=== PATIENT | female | born 1995 | race Caucasian/White ===

== ENCOUNTER 2019-11-06 04:21 | Inpatient (IN) | payer BC, MEDICAID ==
[~2019-11-06] VITALS: Ht 154.9 cm; Wt 72.7 kg
[2019-11-06] VITALS (40 sets, daily range): BP systolic 98–160; BP diastolic 52–87
--- NOTE | 2019-11-06 07:00 | NUR ---
AISLINN REZA admitted to room 3316-1, with an admitting diagnosis of induction of labor, on 11/06/19 from home, ambulated to OB floor accompanied by s/o .AISLINN REZA introduced to surroundings, call light, bed controls, phone, TV, temperature control, lights, meal times, smoking policy, visitor policy, side rail policy, bathrooms and showers. Patient Rights given to patient in the handbook. AISLINN REZA verbalizes understanding that [facility] is not responsible for the loss or damage to any personal effects or valuables that are kept in the patients posession during their hospitalization. The following Patient Care Plans were discussed with the patient: Discharge Planning, labor plan of care, pain management, and care. AISLINN REZA verbalizes understanding of Interdisciplinary Patient Education. Patient and/or family were informed about the Rapid Response Team and its purpose.
[2019-11-06] MEDS ORDERED: OXYTOCIN PRE-MIX DRIP 500 ML IV SCH ×3 (07:22→17:33)
[2019-11-06] MEDS ORDERED: D5 LR IV SOLUTION 1,000 ML IV SCH ×3 (07:22→17:45)
[2019-11-06] MEDS ORDERED: MINERAL OIL CONCENTRATE 99.9% 15 ML UDC TOP PRN (07:30)
--- NOTE | 2019-11-06 07:48 | History & Physical ---
History and Physical Date Seen by Provider: Nov 06, 2019 Time Seen by Provider: 07:46 This patient is a 23-year-old 1 white female at [address] [place] [address]. She presents with plans for induction of labor due to gestational diabetes. has been uncomplicated to date except for gestational diabetes that has been well controlled with diet. Her GBS culture at 35 weeks gestation positive. Patient denies rupture membranes or bleeding. Allergies are none Medications are vitamin medical social and surgical histories are per the antepartum record HEENT exam is normal Neck is supple no lymphadenopathy no thyromegaly Abdomen gravid soft nontender nondistended Extremities show no clubbing cyanosis. There is no Homans sign. Pelvic exam is pending Assessment and plan 38 week gestation with a patient with gestational diabetes and a GBS positive culture. Plan is for induction of labor under the cover of ampicillin for GBS prophylaxis. Anticipate vaginal delivery. 38 weeks with gestational diabetes admitted for induction of labor Allergies and Home Medications Allergies Coded Allergies: No Known Drug Allergies (Unverified , 11/06/19) Patient Home Medication List Home Medication List Reviewed: Yes KEN GARCIA MD Nov 06, 2019 07:47
[2019-11-06] MEDS ORDERED: AMPICILLIN FOR IV USE 2,000 MG in WATER (STERILE) FOR INJECTION 14.8 ML IV NR (08:00)
[2019-11-06] MEDS ORDERED: WATER (STERILE) FOR INJECTION 20 ML ONE (08:14)
[2019-11-06] MEDS ORDERED: AMPICILLIN FOR IV USE 2,000 MG VIAL ONE (08:14)
[2019-11-06 08:27] LABS: BASOPHILS % (AUTO) 1 % (0-10); EOSINOPHILS # (AUTO) 0.2 10^3/uL (0.0-0.3); EOSINOPHILS % (AUTO) 2 % (0-10); HEMATOCRIT 37 % (35-52); HEMOGLOBIN 12.3 G/DL (11.5-16.0); LYMPHOCYTES # (AUTO) 2.3 X 10^3 (1.0-4.0); LYMPHOCYTES % (AUTO) 28 % (12-44); MEAN CORPUSCULAR HEMOGLOBIN 28 PG (25-34); MEAN CORPUSCULAR HGB CONC 33 G/DL (32-36); MEAN CORPUSCULAR VOLUME 83 FL (80-99); MONOCYTES # (AUTO) 0.6 X 10^3 (0.0-1.0); MONOCYTES % (AUTO) 8 % (0-12); NEUTROPHILS # (AUTO) 5.1 X 10^3 (1.8-7.8); NEUTROPHILS % (AUTO) 62 % (42-75); PLATELET COUNT 119 10^3/uL (130-400); RED CELL DISTRIBUTION WIDTH 14.8 % (10.0-14.5); WHITE BLOOD COUNT 8.2 10^3/uL (4.3-11.0)
--- OUTSIDE RECORDS SUMMARY | 2019-11-06 08:34 | XMS REPORT | Continuity of Care Document ---
Author Organization Unknown Address Unknown Phone Unavailable Allergies There is no data. Medications There is no data. Problems There is no data. Procedures There is no data. Results There is no data. Encounters ACCT No. Visit Date/Time Discharge Status Pt. Type Provider Facility Loc./Unit Complaint [id number] 03/26/2019 14:20:00 03/26/2019 23:59:5 9 CLS Outpatient [facility]
--- OUTSIDE RECORDS SUMMARY | 2019-11-06 08:34 | XMS REPORT ---
Author Author Rozina Rothman Organization [facility] Address [address] [place] [address] Care Team Providers Care Residential Property Tax Appraiser Name Role Phone SUSY Rothman Unavailable PROBLEMS Type Condition ICD9-CM Code VSV26-[place] Code Onset Dates Condition S tatus SNOMED Code Problem Constipation, unspecified constipation type K59.00 Active 95061405 Problem Amenorrhea N91.2 Active [id number] ALLERGIES No Information ENCOUNTERS Encounter Location Date Diagnosis [facility] [address] [id number] [address] [place] [id number] Mar, Amenorrhea N91.2 [facility] [address] [id number] [address] [place] [id number] Oct, Flank pain R10.9 ; Acute cys titis with hematuria N30.01 and Constipation, unspecified constipation type K59.00 [facility] [address] [id number] [address] [place] [id number] Oct, Left flank pain R10.9 and Ga stroenteritis K52.9 [facility] [address] [id number] [address] [place] [id number] Oct, IMMUNIZATIONS No Known Immunizations SOCIAL HISTORY Never Assessed REASON FOR VISIT PLAN OF CARE VITAL SIGNS MEDICATIONS No Known Medications RESULTS No Results PROCEDURES No Known procedures INSTRUCTIONS MEDICATIONS ADMINISTERED No Known Medications MEDICAL (GENERAL) HISTORY Type Description Date Surgical History No know Surgical history
[2019-11-06] MEDS ORDERED: fentaNYL 2 mcg/ml BUPIVA 0.125 100 ML ONE (10:08)
[2019-11-06] MEDS ORDERED: fentaNYL INJECTION 100 MCG/2 ML AMP ONE (10:20)
[2019-11-06] MEDS ORDERED: BUPIVACAINE 0.25% 30 ML (SENSORCAINE) VIAL ONE (10:20)
[2019-11-06] MEDS ORDERED: LIDOCAINE PF 2% 5 ML (XYLOCAINE) VIAL ONE (10:20)
[2019-11-06] MEDS ORDERED: LACTATED RINGERS 1,000 ML IV SCH (10:57)
[2019-11-06] MEDS ORDERED: NALOXONE 0.4 MG/ML 1 ML (NARCAN) VIAL IV PRN (11:00)
[2019-11-06] MEDS ORDERED: EPIDURAL (fentaNYL 2 MCG/ML BUPIVA 0.125%)100 ML BAG EPI PRN (11:00)
[2019-11-06] MEDS ORDERED: diphenhydrAMINE 50 MG/ML INJ (BENADRYL) IV PRN (11:00)
[2019-11-06] MEDS ORDERED: ONDANSETRON 4 MG/2 ML (SDV) Z0FRAN IV PRN (11:00)
[2019-11-06] MEDS ORDERED: AMPICILLIN FOR IV USE 1,000 MG in WATER (STERILE) FOR INJECTION 7.4 ML IV SCH (12:00)
[2019-11-06] MEDS ORDERED: LIDOCAINE/EPI 2% 1:200,00 (XYLOCAINE) 10 ML VIAL ONE ×2 (12:43→14:34)
--- NOTE | 2019-11-06 15:08 | NUR ---
lidocaine administered to perineum. episotomy performed by dr swenson per patient verbal request.
--- NOTE | 2019-11-06 15:15 | NUR ---
spontaneous vaginal delivery of intact placenta by dr swenson sent to lab.
--- NOTE | 2019-11-06 15:16 | NUR ---
dr assessing perineum for further tears/lacerations, lidocaine administered to perineum by dr swenson .
--- NOTE | 2019-11-06 15:17 | NUR ---
repair began by dr swenson using 3.0 rapide. 1528 repair completed.
[2019-11-06] MEDS ORDERED: KETOROLAC 30 MG/ML VIAL ONE (15:33)
--- NOTE | 2019-11-06 17:05 | NUR ---
fundal massage U/1. several clots expressed with massage. moderate to heavy flow. assisted into w/c, transferred to pp room 312 via w/c with s/o and baby. a/o x3 talking with staff and s/o. denies pain. assisted into bathroom with standby assistance. gait slow but steady.
--- NOTE | 2019-11-06 17:30 | NUR ---
dr swenson notified of events while patient up to bathroom. vitals reviewed, neurological status reviewed. new orders received. will continue to monitor.
[2019-11-06] MEDS ORDERED: TETANUS,DIPTH,PERTUSS P/F (BOOSTRIX) 0.5 ML VIAL IM ONE (17:45)
[2019-11-06] MEDS ORDERED: ONDANSETRON 4 MG/2 ML (SDV) Z0FRAN IVP PRN (17:45)
[2019-11-06] MEDS ORDERED: BENZOCAINE/MENTHOL (DERMOPLAST) 60 ML CAN TP PRN (17:45)
[2019-11-06] MEDS ORDERED: MEASLES,MUMPS,RUBELLA 1 EA INJ SC ONE (17:45)
[2019-11-06] MEDS ORDERED: oxyCODONE/APAP 5/325MG (PERCOCET 5) TABLET PO PRN (17:45)
[2019-11-06] MEDS: DOCUSATE SODIUM 100 MG (COLACE) CAP PO SCH (20:33)
[2019-11-06] MEDS: CATHETER FLUSH 10 ML SYR IV SCH (21:02)
[2019-11-06] MEDS: KETOROLAC 30 MG/ML VIAL IVP SCH (23:13)
[2019-11-07 04:20] VITALS: BP 96/57
[2019-11-07] MEDS: KETOROLAC 30 MG/ML VIAL IVP SCH ×2 (06:04→20:01)
[2019-11-07] MEDS: CATHETER FLUSH 10 ML SYR IV SCH (06:07)
--- NOTE | 2019-11-07 07:49 | Progress Note ---
Standard Progress Note Progress Notes/Assess & Plan Date Seen by a Provider: Nov 07, 2019 Time Seen by a Provider: 07:48 Progress/Assessment & Plan This patient is without complaint. She is ambulating, voiding, tolerating oral intake well has good pain control. Vital Signs 11/06/19 11/07/19 23:13 04:20 Temp 35.9 Pulse 74 Resp 18 B/P (MAP) 96/57 (70) Pulse Ox 97 O2 Delivery Room Air Vital signs are stable. Patient is afebrile. Fundus is firm below the umbilicus and nontender. Extremities show no clubbing cyanosis. There is no Homans sign. Assessment and plan was day 1 status post term spontaneous vaginal delivery at 38 weeks gestation. Patient doing well will have routine convalescence care Final Diagnosis 38 week spontaneous vaginal delivery KEN GARCIA MD Nov 07, 2019 07:48
--- NOTE | 2019-11-07 07:49 | Anesthesia-Regional Post-Op ---
Regional Patient Condition Mental Status: Alert, Oriented x3 Circulation: Same as Pre-Op Headache: Absent Sensation: Full Recovery Motor Block: Absent Post Op Complications Complications None Follow Up Care/Instructions Patient Instructions None needed. Anesthesia/Patient Condition Patient is doing well, no complaints, stable vital signs, no apparent adverse anesthesia problems. No complications reported per nursing. GIO MAC CRNA Nov 07, 2019 07:49
[2019-11-07] MEDS ORDERED: DCS100C PO (07:50)
[2019-11-07] MEDS ORDERED: IBUP-1780 PO (07:50)
[2019-11-07] MEDS ORDERED: OXYC1TAB87 PO (07:50)
--- NOTE | 2019-11-07 07:51 | Discharge Inst-Surgical ---
Discharge Inst-Surgical Depart Medication/Instructions New, Converted or Re-Newed RX: RX on Chart Consults/Follow Up Patient Instructions: As directed Orders & Referrals Follow Up Appt: Call to make follow up appt. for patient in 4 weeks. Activity Per routine post vaginal delivery instructions. Please call in RX to patient pharmacy. Diet as tolerated Patient may shower or tub bathe as desired. Activity Activity as Tolerated: No Diet Discharge Diet: No Restrictions KEN GARCIA MD Nov 07, 2019 07:51
[2019-11-07] MEDS: DOCUSATE SODIUM 100 MG (COLACE) CAP PO SCH ×2 (08:44→21:20)
[2019-11-07 08:45] VITALS: BP 84/47
[2019-11-07] MEDS ORDERED: IBUPROFEN 800 MG (MOTRIN) TAB PO ONE ×2 (12:16→18:24)
[2019-11-07 12:20] VITALS: BP 104/62
--- NOTE | 2019-11-07 12:21 | OPERATIVE REPORT ---
DATE OF SERVICE: 11/06/2019 DELIVERY NOTE The patient delivered by term spontaneous vaginal delivery, a viable female infant with Apgars of 8 and 9 at 1 and 5 minutes respectively, weight 7 pounds 15 ounces. Cord blood pH that is pending and a time of 1510. The infant was delivered over an episiotomy that was performed at the patient's request. The patient has specifically requested episiotomy when she could feel her bottom tearing as the was trying to deliver over the perineum. Episiotomy was then performed at her request and the delivery completed without further inherent trauma. The was bulb suctioned on delivery of the head and again on completion of delivery. Umbilical cord was doubly clamped, father cut the cord, the baby was passed to mom's abdomen. Cord bloods were obtained. The placenta delivered spontaneously Cole. It was normal with a 3-vessel cord. The cervix, rectum, vagina and perineum were examined and found intact, except for the episiotomy and several superficial lacerations involving the hymenal ring and the posterior vaginal wall. The episiotomy was repaired in the usual manner with a single suture of 3-0 Vicryl Rapide. The lacerations were repaired concurrent with that repair as well. There were several small superficial abrasions periurethrally located as well. These were hemostatic and did not require repair. Sponge and needle counts were correct on completion of delivery and the repair. Estimated blood loss was around 350 mL. The patient tolerated the delivery well and was recovered in the LDR. The baby remained with the mom. Job ID: [id number] DocumentID: [id number] Dictated Date: 11/07/2019 07:55:42 Baling Machine Tender Date: 11/07/2019 12:21:06 Dictated By: KEN GARCIA MD
[2019-11-07 18:30] VITALS: BP 104/56
[2019-11-08] MEDS ORDERED: FERROUS SULF 325 MG (IRON) TAB PO ONE (00:49)
[2019-11-08 00:53] VITALS: BP 96/55
[2019-11-08] MEDS: IBUPROFEN 800 MG (MOTRIN) TAB PO SCH ×4 (00:53→17:55)
[2019-11-08] MEDS: FERROUS SULF 325 MG (IRON) TAB PO SCH ×3 (00:53→17:55)
[2019-11-08 06:20] VITALS: BP 87/48
--- NOTE | 2019-11-08 07:45 | NUR ---
DR. GARCIA HERE TO SEE PT.
--- NOTE | 2019-11-08 07:58 | Progress Note ---
Standard Progress Note Progress Notes/Assess & Plan Date Seen by a Provider: Nov 08, 2019 Time Seen by a Provider: 07:57 Progress/Assessment & Plan This patient is without complaint. She is ambulating, voiding, tolerating oral intake well has good pain control. Vital Signs 11/06/19 11/07/19 23:13 04:20 Temp 35.9 Pulse 74 Resp 18 B/P (MAP) 96/57 (70) Pulse Ox 97 O2 Delivery Room Air Vital signs are stable. Patient is afebrile. Fundus is firm below the umbilicus and nontender. Extremities show no clubbing cyanosis. There is no Homans sign. Assessment and plan was day 1 status post term spontaneous vaginal delivery at 38 weeks gestation. Patient doing well will have routine convalescence care November 08, 2019 Patient is without complaint. She is ambulating, voiding, tolerating oral intake well and requesting discharge home. Vital Signs Date Time Temp Pulse Resp B/P (MAP) Pulse Ox O2 Delivery O2 Flow Rate FiO2 11/08/19 06:20 36.4 75 18 87/48 (61) 99 Room Air 11/08/19 00:53 37.0 71 18 96/55 (69) 98 Room Air 11/07/19 18:30 37.1 78 18 104/56 (72) Room Air 11/07/19 12:20 37.2 68 18 104/62 (76) 98 Room Air 11/07/19 08:45 37.0 66 18 84/47 (59) 98 Room Air Vital signs are stable. Patient is afebrile. The abdomen is benign. Fundus firm below the umbilicus is nontender. Extremities show no clubbing or cyanosis. There is no Homans sign. Assessment and plan day number 2 status post term spontaneous vaginal delivery at 38 weeks gestation. Patient is doing well and will be discharged home with follow-up in clinic Final Diagnosis 38 week spontaneous vaginal delivery KEN GARCIA MD Nov 08, 2019 07:58
--- NOTE | 2019-11-08 09:00 | NUR ---
Rick MONTOYA. VSS. CARING FOR INFANT IN ROOM.
[2019-11-08 09:15] VITALS: BP 99/52
[2019-11-08] MEDS: DOCUSATE SODIUM 100 MG (COLACE) CAP PO SCH (09:56)
[2019-11-08] MEDS ORDERED: WITCH HAZEL(TUCKS) 40 EA JAR TOP PRN (10:00)
--- NOTE | 2019-11-08 12:00 | NUR ---
VSS. CONTINUES TO DO WELL. STATES GOING WELL. SPOUSE AT BEDSIDE.
[2019-11-08 12:05] VITALS: BP 101/53
--- NOTE | 2019-11-08 13:15 | NUR ---
EATING STORK MEAL.
--- NOTE | 2019-11-08 14:00 | NUR ---
MOVES WELL. OFFERS NO COMPLAINT.
--- NOTE | 2019-11-08 14:40 | NUR ---
PRESCRIPTIONS CALLED TO [facility] PER PT REQUEST.
--- NOTE | 2019-11-08 15:00 | NUR ---
INFANT TO HAVE REPEAT BILIRUBIN. HOPING TO GO HOME WITH INFANT THIS EVENING.
--- NOTE | 2019-11-08 15:33 | NUR ---
TDAP GIVEN IM IN LEFT DELTOID. SITE CLEAR.
[2019-11-08 17:00] VITALS: BP 112/73
--- NOTE | 2019-11-08 17:00 | NUR ---
VSS. DENIES ANY PAIN. CARING FOR INFANT IN ROOM.
--- NOTE | 2019-11-08 17:45 | NUR ---
DISCHARGE INSTRUCTIONS REVIEWED WITH COPY TO PT. STATES UNDERSTANDING OF ALL INSTRUCTIONS AND NEED TO F/U SCHEDULED AND NEEDED.
[2019-11-08 18:00] VITALS: BP 112/73
--- NOTE | 2019-11-08 18:00 | NUR ---
PT DISMISSED FROM WS IN STABLE CONDITION. PT WILL REMAIN IN PT ROOM R/T INFANT HAVING TO STAY IN HOSPITAL.
[2019-11-11] MEDS ORDERED: IBUPROFEN 800 MG (MOTRIN) TAB PO SCH (18:00)
== END 2019-11-08 18:00 | disposition home or self-care (01) | DRG 807 ==
LOC: LDRP 07:00
PROVIDERS: ADMIT Obstetrics & Gynecology; ATTEND Obstetrics & Gynecology
PROC: 10E0XZZ Delivery of Products of Conception, External Approach (ICD-10-PCS; principal; 2019-11-06)
PROC: 0W8NXZZ Division of Female Perineum, External Approach (ICD-10-PCS; 2019-11-06)
PROC: 0HQ9XZZ Repair Perineum Skin, External Approach (ICD-10-PCS; 2019-11-06)
PROC: 0UQGXZZ Repair Vagina, External Approach (ICD-10-PCS; 2019-11-06)
PROC: 3E033VJ Introduction of Other Hormone into Peripheral Vein, Percutaneous Approach (ICD-10-PCS; 2019-11-06)
DX: O24.420 Gestational diabetes mellitus in childbirth, diet controlled (principal); Z37.0 Single live birth; O99.824 Streptococcus B carrier state complicating childbirth; O70.0 First degree perineal laceration during delivery; Z3A.38 38 weeks gestation of pregnancy
CPT/HCPCS: 36415; 82947; 82962; 85025; 86850; 86900; 86901; 90715

== ENCOUNTER → 2021-04-29 | Outpatient (CLI) | payer BC, MEDICAID ==
[~2021-04-29] MED LIST: DOCU-239 PO; IBUP-1780 PO; OXYC1TAB87 PO
--- NOTE | 2021-04-29 13:57 | Diagnostic Imaging Report ---
INDICATION: survey. TECHNIQUE: Multiple real-time grayscale images were obtained over the gravid uterus. COMPARISON: None FINDINGS: There is a single live fetus in a cephalic presentation. heart rate was recorded at 146 bpm. Placenta is posterior. Amniotic fluid volume appears normal. Cervical length is 4.5 cm. kidneys, bladder and stomach are unremarkable. brain is unremarkable. There is a four-chamber heart. There is three-vessel cord with normal insertion. spine is unremarkable. Biometrical measurements are as follows: Biparietal 7.56 cm, age 30 weeks 3 days. Head circumference 28.16 cm, age 31 weeks 0 days. Abdominal circumference 26.83 cm, age 31 weeks 0 days. Femur length 5.86 cm, age 30 weeks 5 days. Sonographic estimate age: 30 weeks 6 days. Sonographic estimated date of delivery: 07/02/2021. Estimated Weight: 1636 gm (+/- 239 gm). LMP percentile: 70%. heart rate: 146 beats per minute. number: 1 of 1. IMPRESSION: Single live IUP 30 weeks 6 days gestational age. Estimated of confinement sonographic is 07/02/2021. Dictated by: Dictated on workstation # [id number]
== END ==
LOC: RAD 12:45
PROVIDERS: ATTEND Nurse Practitioner Women's Health
DX: Z34.82 Encounter for supervision of other normal pregnancy, second trimester (principal); Z3A.30 30 weeks gestation of pregnancy
CPT/HCPCS: 76805

== ENCOUNTER 2021-06-25 07:00 | Inpatient (IN) | payer BC, MEDICAID ==
[2021-06-25] VITALS (55 sets, daily range): BP systolic 103–137; BP diastolic 55–98
[~2021-06-25] VITALS: Ht 154.9 cm; Wt 69.9 kg
[2021-06-25] MEDS ORDERED: D5 LR IV SOLUTION 1,000 ML IV ONE (07:31)
[2021-06-25] MEDS ORDERED: AMPICILLIN 2,000 MG/14.8 ML (IV USE) ONE (07:31)
[2021-06-25] MEDS ORDERED: NS (IVPB) 50 ML ONE (07:31)
[2021-06-25] MEDS ORDERED: AMPICILLIN FOR IV USE 2,000 MG in NS (IVPB) 50 ML IV SCH (08:06)
[2021-06-25 08:14] LABS: BASOPHILS % (AUTO) 1 % (0-10); EOSINOPHILS # (AUTO) 0.1 10^3/uL (0.0-0.3); EOSINOPHILS % (AUTO) 2 % (0-10); HEMATOCRIT 49 % (35-52); HEMOGLOBIN 15.6 g/dL (11.5-16.0); LYMPHOCYTES % (AUTO) 32 % (12-44); MEAN CORPUSCULAR HEMOGLOBIN 26 pg (25-34); MEAN CORPUSCULAR HGB CONC 32 g/dL (32-36); MEAN CORPUSCULAR VOLUME 82 fL (80-99); MONOCYTES # (AUTO) 0.4 10^3/uL (0.0-1.0); MONOCYTES % (AUTO) 7 % (0-12); NEUTROPHILS # (AUTO) 3.5 10^3/uL (1.8-7.8); NEUTROPHILS % (AUTO) 58 % (42-75); PLATELET COUNT 82 10^3/uL (130-400); WHITE BLOOD COUNT 6.1 10^3/uL (4.3-11.0)
[2021-06-25] MEDS ORDERED: OXYTOCIN PRE-MIX DRIP 500 ML IV SCH ×3 (08:15→16:30)
[2021-06-25] MEDS ORDERED: D5 LR IV SOLUTION 1,000 ML IV SCH ×2 (08:15→08:45)
[2021-06-25 08:17] LABS: SMEAR SCAN COMMENT YES
[2021-06-25 08:38] LABS: EOSINOPHILS % (MANUAL) 1 %; LYMPHOCYTES % (MANUAL) 37 %; MONOCYTES % (MANUAL) 5 %; NEUTROPHILS % (MANUAL) 55 %
[2021-06-25 08:39] LABS: ATYPICAL LYMPHOCYTES 2 %; PLATELET CLUMPS NONE SEEN; POLYCHROMASIA MODERATE
[2021-06-25] MEDS ORDERED: AMPICILLIN FOR IV USE 2,000 MG in WATER (STERILE) FOR INJECTION 14.8 ML IV ONE (08:45)
[2021-06-25] MEDS ORDERED: AMPICILLIN FOR IV USE 1,000 MG in WATER (STERILE) FOR INJECTION 7.4 ML IV SCH (08:45)
[2021-06-25] MEDS ORDERED: NS IV 1000 ML 0 ML ONE (09:27)
--- NOTE | 2021-06-25 09:30 | History & Physical ---
History and Physical Date Seen by Provider: Jun 25, 2021 Time Seen by Provider: 12:00 This patient is a 25-year-old 2 para 1 female currently at 38 weeks gestation. Her is complicated by gestational diabetes and is noted on admission labs today that she has thrombocytopenia as well. Her further is complicated by mild polyhydramnios. Patient was admitted on this date for induction of labor. Her GBS culture was positive and she will be induced under the cover of ampicillin for GBS prophylaxis Allergies are none Medications are vitamins Medical social and surgical history is are per the antepartum record HEENT exam is normal Neck is supple no lymphadenopathy no thyromegaly Abdomen is gravid soft nontender nondistended Extremities show no clubbing cyanosis. There is no Homans' sign. Pelvic exam is pending Lab work is as follows Laboratory Tests Test 06/25/21 07:30 Range/Units White Blood Count 6.1 4.3-11.0 10^3/uL Red Blood Count 5.96 H 3.80-5.11 10^6/uL Hemoglobin 15.6 11.5-16.0 g/dL Hematocrit 49 35-52 % Mean Corpuscular Volume 82 80-99 fL Mean Corpuscular Hemoglobin 26 25-34 pg Mean Corpuscular Hemoglobin Concent 32 32-36 g/dL Red Cell Distribution Width 14.6 H 10.0-14.5 % Platelet Count 82 L 130-400 10^3/uL Mean Platelet Volume 9.0-12.2 fL Immature Granulocyte % (Auto) 1 % Neutrophils (%) (Auto) 58 42-75 % Lymphocytes (%) (Auto) 32 12-44 % Monocytes (%) (Auto) 7 0-12 % Eosinophils (%) (Auto) 2 0-10 % Basophils (%) (Auto) 1 0-10 % Neutrophils # (Auto) 3.5 1.8-7.8 10^3/uL Lymphocytes # (Auto) 2.0 1.0-4.0 10^3/uL Monocytes # (Auto) 0.4 0.0-1.0 10^3/uL Eosinophils # (Auto) 0.1 0.0-0.3 10^3/uL Basophils # (Auto) 0.0 0.0-0.1 10^3/uL Immature Granulocyte # (Auto) 0.0 0.0-0.1 10^3/uL Neutrophils % (Manual) 55 % Lymphocytes % (Manual) 37 % Monocytes % (Manual) 5 % Eosinophils % (Manual) 1 % Atypical Lymphocytes 2 % Platelet Estimate SEE COMMENT Clumped Platelets NONE SEEN Polychromasia MODERATE Glucose Level 80 70-105 MG/DL Smear Scan YES Note is made of platelet count of 82,000 Assessment and plan Term at 38 weeks gestation with mild polyhydramnios and with gestational diabetes and now noted with thrombocytopenia. Patient has a GBS positive culture and will be given ampicillin throughout her labor. She is considering platelet transfusion to increase her platelets to an acceptable level for epidural which she desires. We do anticipate a vaginal delivery 38 weeks with gestational diabetes and polyhydramnios Allergies and Home Medications Allergies Coded Allergies: No Known Drug Allergies (Unverified , 11/06/19) Patient Home Medication List Home Medication List Reviewed: Yes Docusate Sodium (Dok) 100 Mg Capsule, 100 MG PO BID Prescribed by: KEN AZEVEDO on 11/07/19 0750 Ibuprofen (Ibuprofen) 800 Mg Tablet, 800 MG PO Q6HR Prescribed by: KEN AZEVEDO on 11/07/19 0750 Oxycodone HCl/Acetaminophen (Percocet 5-325 mg Tablet) 1 Each Tablet, 1 TAB PO Q4H PRN for PAIN-MODERATE (5-7) Prescribed by: KEN AZEVEDO on 11/07/19 0750 KEN GARCIA MD Jun 25, 2021 09:30
[2021-06-25] MEDS ORDERED: NS IV 500 ML 500 ML ONE (09:42)
[2021-06-25] MEDS ORDERED: AMPICILLIN FOR IV USE 1,000 MG in NS (IVPB) 50 ML IV SCH (12:15)
[2021-06-25] MEDS ORDERED: fentaNYL 2 mcg/ml BUPIVA 0.125 100 ML ONE (13:58)
[2021-06-25] MEDS ORDERED: LACTATED RINGERS 1,000 ML IV ONE (14:00)
[2021-06-25] MEDS ORDERED: diphenhydrAMINE 50 MG/ML INJ (BENADRYL) IV PRN (14:00)
[2021-06-25] MEDS ORDERED: NALOXONE 0.4 MG/ML 1 ML (NARCAN) VIAL IV PRN (14:00)
[2021-06-25] MEDS ORDERED: ONDANSETRON 4 MG/2 ML (SDV) Z0FRAN IV PRN (14:00)
[2021-06-25] MEDS ORDERED: CATHETER FLUSH 10 ML SYR IV PRN (14:00)
[2021-06-25] MEDS ORDERED: fentaNYL 2 mcg/ml BUPIVA 0.125 100 ML IV SCH (14:00)
[2021-06-25] MEDS ORDERED: fentaNYL INJ 100 MCG/2 ML AMP ONE (14:07)
[2021-06-25] MEDS ORDERED: BUPIVACAINE 0.25% 10 ML (SENSORCAINE) VIAL ONE (14:08)
[2021-06-25] MEDS ORDERED: LIDOCAINE/EPI 2% 1:200,00 (XYLOCAINE) 10 ML VIAL ONE (15:25)
[2021-06-25] MEDS ORDERED: BENZOCAINE/MENTHOL (DERMOPLAST) 56 ML CAN TP ONE (16:24)
[2021-06-25] MEDS ORDERED: TETANUS,DIPTH,PERTUSS P/F (BOOSTRIX) 0.5 ML VIAL IM ONE (16:30)
[2021-06-25] MEDS ORDERED: BENZOCAINE/MENTHOL (DERMOPLAST) 56 ML CAN TP PRN ×2 (16:30→16:45)
[2021-06-25] MEDS ORDERED: oxyCODONE/APAP 5/325MG (PERCOCET 5) TABLET PO PRN (16:30)
[2021-06-25] MEDS: KETOROLAC 30 MG/ML VIAL IVP SCH (17:11)
[2021-06-25] MEDS: CATHETER FLUSH 10 ML SYR IV SCH (19:49)
[2021-06-25] MEDS: DOCUSATE SODIUM 100 MG (COLACE) CAP PO SCH (20:31)
[2021-06-26] MEDS ORDERED: IBUPROFEN 800 MG (MOTRIN) TAB PO ONE ×2 (00:27→12:13)
[2021-06-26 00:32] VITALS: BP 105/67
[2021-06-26] MEDS: KETOROLAC 30 MG/ML VIAL IVP SCH (00:32)
[2021-06-26] MEDS: CATHETER FLUSH 10 ML SYR IV SCH (00:35)
[2021-06-26 04:00] VITALS: BP 99/59
[2021-06-26] MEDS: IBUPROFEN 800 MG (MOTRIN) TAB PO SCH ×3 (06:35→18:14)
[2021-06-26 10:11] VITALS: BP 101/67
[2021-06-26] MEDS: DOCUSATE SODIUM 100 MG (COLACE) CAP PO SCH ×2 (10:11→21:00)
--- NOTE | 2021-06-26 10:59 | Anesthesia-Regional Post-Op ---
Regional Patient Condition Mental Status: Alert, Oriented x3 Circulation: Same as Pre-Op Headache: Absent Sensation: Full Recovery Motor Block: Absent Post Op Complications Complications None Follow Up Care/Instructions Patient Instructions None needed. Anesthesia/Patient Condition Patient is doing well, no complaints, stable vital signs, no apparent adverse anesthesia problems. JOHNNIE MONTIEL DO Jun 26, 2021 10:59
--- NOTE | 2021-06-26 12:24 | Progress Note ---
Standard Progress Note Progress Notes/Assess & Plan Date Seen by a Provider: Jun 26, 2021 Time Seen by a Provider: 12:22 Progress/Assessment & Plan This patient is without complaint. She is ambulating, voiding, tolerating oral intake well and has good pain control. VS - Last 72 Hours, by Label 06/25/21 06/25/21 06/25/21 06/25/21 07:24 07:48 09:49 09:54 Temp 36.2 36.2 36.8 37.3 Pulse 85 85 78 85 Resp 18 18 18 18 B/P (MAP) 107/76 (86) 103/59 105/60 Pulse Ox 98 98 97 97 O2 Delivery Room Air Room Air Room Air Room Air 06/25/21 06/25/21 06/25/21 06/25/21 10:04 10:22 10:26 10:42 Temp 37.2 37.1 37.0 Pulse 71 79 73 76 Resp 18 18 18 18 B/P (MAP) 110/65 103/65 107/68 111/69 (83) Pulse Ox 97 98 97 O2 Delivery Room Air Room Air Room Air Room Air 06/25/21 06/25/21 06/25/21 06/25/21 10:58 11:12 11:28 11:42 Pulse 76 74 75 75 Resp 18 18 18 18 B/P (MAP) 107/63 (78) 103/60 (74) 105/64 (78) 115/66 (82) O2 Delivery Room Air Room Air Room Air Room Air 06/25/21 06/25/21 06/25/21 06/25/21 11:58 12:12 12:28 12:42 Temp 36.6 Pulse 70 76 72 66 Resp 18 18 18 18 B/P (MAP) 106/60 (75) 106/62 (77) 105/64 (78) 110/63 (79) O2 Delivery Room Air Room Air Room Air Room Air 06/25/21 06/25/21 06/25/21 06/25/21 12:58 13:12 13:27 13:43 Temp 36.7 Pulse 78 65 65 66 Resp 18 18 18 18 B/P (MAP) 115/55 (75) 107/58 (74) 112/65 (81) 111/71 (84) O2 Delivery Room Air Room Air Room Air Room Air 06/25/21 06/25/21 06/25/21 06/25/21 13:58 14:12 14:15 14:18 Pulse 85 78 79 75 Resp 18 18 18 18 B/P (MAP) 117/67 (84) 118/70 (86) 130/78 (95) 110/72 (85) Pulse Ox 99 O2 Delivery Room Air Room Air Room Air Room Air 06/25/21 06/25/21 06/25/21 06/25/21 14:21 14:24 14:27 14:30 Pulse 79 84 75 79 Resp 18 18 18 18 B/P (MAP) 127/62 (83) 121/82 (95) 123/83 (96) 115/70 (85) Pulse Ox 99 98 98 O2 Delivery Room Air Room Air Room Air Room Air 06/25/21 06/25/21 06/25/21 06/25/21 14:33 14:36 14:39 14:42 Temp 36.6 Pulse 75 79 77 79 Resp 18 18 18 18 B/P (MAP) 112/67 (82) 117/68 (84) 113/68 (83) 109/65 (80) Pulse Ox 98 99 O2 Delivery Room Air Room Air Room Air Room Air 06/25/21 06/25/21 06/25/21 06/25/21 14:45 14:48 14:53 15:00 Pulse 82 81 91 101 Resp 18 18 18 18 B/P (MAP) 110/65 (80) 121/79 (93) 111/76 (88) 115/76 (89) Pulse Ox 100 100 100 O2 Delivery Room Air Room Air Room Air Room Air 06/25/21 06/25/21 06/25/21 06/25/21 15:20 15:24 15:29 15:34 Pulse 142 97 95 102 Resp 18 18 18 18 B/P (MAP) 137/98 (111) 110/56 (74) 122/59 (80) 115/56 (75) O2 Delivery Room Air Room Air Room Air Room Air 06/25/21 06/25/21 06/25/21 06/25/21 15:40 15:44 15:50 15:55 Pulse 92 95 102 98 Resp 18 18 18 18 B/P (MAP) 110/58 (75) 109/57 (74) 115/68 (84) 130/63 (85) O2 Delivery Room Air Room Air Room Air Room Air 06/25/21 06/25/21 06/25/21 06/25/21 16:03 16:08 16:27 16:42 Pulse 86 85 77 72 Resp 18 18 18 18 B/P (MAP) 116/55 (75) 115/65 (82) 118/63 (81) 118/77 (91) O2 Delivery Room Air Room Air Room Air Room Air 06/25/21 06/25/21 06/25/21 06/25/21 16:57 17:12 17:27 17:42 Temp 37.0 Pulse 81 94 90 73 Resp 18 18 18 18 B/P (MAP) 126/61 (82) 114/70 (85) 117/80 (92) 106/62 (77) O2 Delivery Room Air Room Air Room Air Room Air 06/25/21 06/25/21 06/25/21 06/26/21 17:57 18:12 20:31 00:32 Temp 37.1 36.4 Pulse 70 71 63 59 Resp 18 18 18 18 B/P (MAP) 109/63 (78) 105/63 (77) 113/65 (81) 105/67 (80) Pulse Ox 98 98 O2 Delivery Room Air Room Air Room Air Room Air 06/26/21 06/26/21 04:00 10:11 Temp 36.7 37.0 Pulse 67 71 Resp 18 18 B/P (MAP) 99/59 (72) 101/67 (78) Pulse Ox 97 O2 Delivery Room Air Room Air Vital signs are stable. Patient is afebrile. Fundus is firm below the umbilicus and nontender. Extremities show no clubbing or cyanosis. There is no Homans' sign. Assessment and plan day #1 status post term spontaneous vaginal delivery doing well. Plan is for routine convalescent care Patient likely will be discharged home tomorrow Final Diagnosis 38-week spontaneous vaginal delivery KEN GARCIA MD Jun 26, 2021 12:23
[2021-06-26] MEDS ORDERED: OXYC1TAB87 PO (12:28)
[2021-06-26] MEDS ORDERED: IBUP-1780 PO (12:28)
[2021-06-26] MEDS ORDERED: DOCU100C37 PO (12:28)
--- NOTE | 2021-06-26 12:32 | Discharge Inst-Simple/Standard ---
Discharge Inst-Standard Reconcile Patient Problems Problems Reviewed?: Yes Discharge Medications New, Converted or Re-Newed RX: Other Patient Instructions/Follow Up Plan of Care/Instructions/FU: As directed Activity as Tolerated: Yes Discharge Diet: No Restrictions (As directed) Health Concerns: Routine recovery Return to The Hospital For: As directed Other Inst to Patient Follow Up Appt: Call to make follow up appt. for patient in 4 weeks. Activity Per routine post vaginal delivery instructions. Diet as tolerated Patient may shower or tub bathe as desired. KEN GARCIA MD Jun 26, 2021 12:32
--- NOTE | 2021-06-26 12:41 | OB Labor & Delivery Record ---
Labor & Delivery This patient had a term spontaneous vaginal delivery of a viable male with Apgars of 9 and 9 at 1 and 5 unexpected weight of 6 pounds and 15 ounces. Cord blood pH was 7.36. Delivery was uncomplicated. Patient did sustain A right periurethral laceration of first-degree extent and a first-degree perineal laceration both of which were repaired under local analgesia and the epidural with a single suture of 3-0 Vicryl Rapide. The placenta delivered spontaneously Cole it was normal with a three-vessel cord. Cervix vagina rectum were examined and found intact except for the 2 lacerations noted above were repaired as noted above. Sponge needle counts were correct on completion of delivery and repair blood loss was around 300 cc. KEN GARCIA MD Jun 26, 2021 12:40
[2021-06-26 15:28] VITALS: BP 110/66
[2021-06-26 18:13] VITALS: BP 108/66
[2021-06-27 00:16] VITALS: BP 106/67
[2021-06-27 05:41] VITALS: BP 91/53
[2021-06-27] MEDS: IBUPROFEN 800 MG (MOTRIN) TAB PO SCH ×3 (05:42→12:56)
[2021-06-27] MEDS: DOCUSATE SODIUM 100 MG (COLACE) CAP PO SCH (09:12)
--- NOTE | 2021-06-27 10:25 | Postpartum Progress Note ---
Note Note Day # 2 Subjective: Patient is without complaints. Ambulating, voiding. Tolerating a regular diet without nausea or vomiting. Normal lochia. Pain is well controlled with oral pain medications. Bottlefeeding. Objective: VS - Last 72 Hours, by Label 06/25/21 06/25/21 06/25/21 06/25/21 07:24 07:48 09:49 09:54 Temp 36.2 36.2 36.8 37.3 Pulse 85 85 78 85 Resp 18 18 18 18 B/P (MAP) 107/76 (86) 103/59 105/60 Pulse Ox 98 98 97 97 O2 Delivery Room Air Room Air Room Air Room Air 06/25/21 06/25/21 06/25/21 06/25/21 10:04 10:22 10:26 10:42 Temp 37.2 37.1 37.0 Pulse 71 79 73 76 Resp 18 18 18 18 B/P (MAP) 110/65 103/65 107/68 111/69 (83) Pulse Ox 97 98 97 O2 Delivery Room Air Room Air Room Air Room Air 06/25/21 06/25/21 06/25/21 06/25/21 10:58 11:12 11:28 11:42 Pulse 76 74 75 75 Resp 18 18 18 18 B/P (MAP) 107/63 (78) 103/60 (74) 105/64 (78) 115/66 (82) O2 Delivery Room Air Room Air Room Air Room Air 06/25/21 06/25/21 06/25/21 06/25/21 11:58 12:12 12:28 12:42 Temp 36.6 Pulse 70 76 72 66 Resp 18 18 18 18 B/P (MAP) 106/60 (75) 106/62 (77) 105/64 (78) 110/63 (79) O2 Delivery Room Air Room Air Room Air Room Air 06/25/21 06/25/21 06/25/21 06/25/21 12:58 13:12 13:27 13:43 Temp 36.7 Pulse 78 65 65 66 Resp 18 18 18 18 B/P (MAP) 115/55 (75) 107/58 (74) 112/65 (81) 111/71 (84) O2 Delivery Room Air Room Air Room Air Room Air 06/25/21 06/25/21 06/25/2110/22 13:58 14:12 14:15 14:18 Pulse 85 78 79 75 Resp 18 18 18 18 B/P (MAP) 117/67 (84) 118/70 (86) 130/78 (95) 110/72 (85) Pulse Ox 99 O2 Delivery Room Air Room Air Room Air Room Air 06/25/21 06/25/21 06/25/21 06/25/21 14:21 14:24 14:27 14:30 Pulse 79 84 75 79 Resp 18 18 18 18 B/P (MAP) 127/62 (83) 121/82 (95) 123/83 (96) 115/70 (85) Pulse Ox 99 98 98 O2 Delivery Room Air Room Air Room Air Room Air 06/25/21 06/25/21 06/25/21 06/25/21 14:33 14:36 14:39 14:42 Temp 36.6 Pulse 75 79 77 79 Resp 18 18 18 18 B/P (MAP) 112/67 (82) 117/68 (84) 113/68 (83) 109/65 (80) Pulse Ox 98 99 O2 Delivery Room Air Room Air Room Air Room Air 06/25/21 06/25/21 06/25/21 06/25/21 14:45 14:48 14:53 15:00 Pulse 82 81 91 101 Resp 18 18 18 18 B/P (MAP) 110/65 (80) 121/79 (93) 111/76 (88) 115/76 (89) Pulse Ox 100 100 100 O2 Delivery Room Air Room Air Room Air Room Air 06/25/21 06/25/21 06/25/21 06/25/21 15:20 15:24 15:29 15:34 Pulse 142 97 95 102 Resp 18 18 18 18 B/P (MAP) 137/98 (111) 110/56 (74) 122/59 (80) 115/56 (75) O2 Delivery Room Air Room Air Room Air Room Air 06/25/21 06/25/21 06/25/21 06/25/21 15:40 15:44 15:50 15:55 Pulse 92 95 102 98 Resp 18 18 18 18 B/P (MAP) 110/58 (75) 109/57 (74) 115/68 (84) 130/63 (85) O2 Delivery Room Air Room Air Room Air Room Air 06/25/21 06/25/21 06/25/21 06/25/21 16:03 16:08 16:27 16:42 Pulse 86 85 77 72 Resp 18 18 18 18 B/P (MAP) 116/55 (75) 115/65 (82) 118/63 (81) 118/77 (91) O2 Delivery Room Air Room Air Room Air Room Air 06/25/21 06/25/21 06/25/21 06/25/21 16:57 17:12 17:27 17:42 Temp 37.0 Pulse 81 94 90 73 Resp 18 18 18 18 B/P (MAP) 126/61 (82) 114/70 (85) 117/80 (92) 106/62 (77) O2 Delivery Room Air Room Air Room Air Room Air 06/25/21 06/25/21 06/25/21 06/26/21 17:57 18:12 20:31 00:32 Temp 37.1 36.4 Pulse 70 71 63 59 Resp 18 18 18 18 B/P (MAP) 109/63 (78) 105/63 (77) 113/65 (81) 105/67 (80) Pulse Ox 98 98 O2 Delivery Room Air Room Air Room Air Room Air 06/26/21 06/26/21 06/26/21 06/26/21 04:00 10:11 15:28 18:13 Temp 36.7 37.0 36.5 36.8 Pulse 67 71 57 65 Resp 18 18 16 16 B/P (MAP) 99/59 (72) 101/67 (78) 110/66 (81) 108/66 (80) Pulse Ox 97 97 98 O2 Delivery Room Air Room Air Room Air Room Air 06/27/21 06/27/21 00:16 05:41 Temp 36.2 36.3 Pulse 58 56 Resp 16 16 B/P (MAP) 106/67 (80) 91/53 (66) Pulse Ox 97 98 O2 Delivery Room Air Room Air Physical Exam: General - Alert and oriented, no apparent distress Abdomen - Soft, appropriately tender to palpation, non-distended, fundus firm at umbilicus Extremities - no edema, negative Brittany's bilaterally Assessment: Post- day # 2, status post vaginal delivery. Recovering well, hemodynamically stable Plan: Routine care. Viable male infant. Circ desired. Bottlefeeding. Heme: Vitals stable. No s/s of anemia. Ferrous sulfate supplementation. Encourage ambulation. Plan for discharge today. Vitals - Labs Vital Signs - I&O Vital Signs Date Time Temp Pulse Resp B/P (MAP) Pulse Ox O2 Delivery O2 Flow Rate FiO2 06/27/21 05:41 36.3 56 16 91/53 (66) 98 Room Air 06/27/21 00:16 36.2 58 16 106/67 (80) 97 Room Air 06/26/21 18:13 36.8 65 16 108/66 (80) 98 Room Air 06/26/21 15:28 36.5 57 16 110/66 (81) 97 Room Air LIZ LU MD Jun 27, 2021 10:25
[2021-06-27 12:56] VITALS: BP 97/56
== END 2021-06-27 14:45 | disposition home or self-care (01) | DRG 806 ==
LOC: LDRP 07:02
PROVIDERS: ADMIT Obstetrics & Gynecology; ATTEND Obstetrics & Gynecology
PROC: 10E0XZZ Delivery of Products of Conception, External Approach (ICD-10-PCS; principal; 2021-06-26)
PROC: 0HQ9XZZ Repair Perineum Skin, External Approach (ICD-10-PCS; 2021-06-26)
DX: O40.3XX0 Polyhydramnios, third trimester, not applicable or unspecified (principal); O99.12 Other diseases of the blood and blood-forming organs and certain disorders involving the immune mechanism complicating childbirth; Z37.0 Single live birth; Z3A.38 38 weeks gestation of pregnancy; O24.429 Gestational diabetes mellitus in childbirth, unspecified control; D69.6 Thrombocytopenia, unspecified; O99.824 Streptococcus B carrier state complicating childbirth; O70.0 First degree perineal laceration during delivery
CPT/HCPCS: 36415; 82947; 85007; 85027; 85049; 86850; 86900; 86901